=== PATIENT | female | born 2005 | race African-American/Black ===

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

== ENCOUNTER 2023-01-17 11:47 | Day surgery (SDC) | payer OTHER ==
[2023-01-17] MEDS ORDERED: hydrALAZINE 20 MG/ML VIAL SLOW IVP PRN (12:59)
[2023-01-17 13:38] LABS: Fetal Membranes Rupture No Membranes Rupture (No Rupture)
[2023-01-17 14:23] LABS: Bilirubin Neg (Negative); Blood, Urine 50 (Negative); Clarity Clear (Clear); Glucose, Urine (Dipstick) Normal (Negative); Ketone, Urine Negative (Negative); Leukocyte 500 (Negative); Nitrite Negative (Negative); Protein, Urine (Dipstick) 15 mg/dl (Neg-Trace); Urobilinogen Normal mg/dL (Less than 2)
[2023-01-17 14:31] LABS: Bacteria/HPF Rare-Few HPF (None Seen); CAUTI Indications for Culture Pregnancy; Squamous Epithelial 0-3 HPF (0-3); Yeast-Budding Rare HPF (None Seen)
[2023-01-17 14:32] LABS: Urine Culture Reflex Yes Yes
== END 2023-01-17 17:24 | disposition home health service (06) ==
LOC: CSHLD/OP 11:47
PROVIDERS: ATTEND Family Medicine
DX: O47.03 False labor before 37 completed weeks of gestation, third trimester (principal); O98.813 Other maternal infectious and parasitic diseases complicating pregnancy, third trimester; B37.31 Acute candidiasis of vulva and vagina; Z3A.36 36 weeks gestation of pregnancy
CPT/HCPCS: 81001; 84112; 87086; 87480; 87510; 87660

== ENCOUNTER 2023-01-20 21:11 | Day surgery (SDC) | payer OTHER ==
[2023-01-20 21:59] VITALS: BMI 25.2
[2023-01-21] MEDS ORDERED: hydrALAZINE 20 MG/ML VIAL SLOW IVP PRN (00:26)
== END 2023-01-21 00:01 | disposition home or self-care (01) ==
LOC: CSHLD/OP 21:11
PROVIDERS: ATTEND Obstetrics & Gynecology
DX: O47.1 False labor at or after 37 completed weeks of gestation (principal); O23.43 Unspecified infection of urinary tract in pregnancy, third trimester; N39.0 Urinary tract infection, site not specified; O23.593 Infection of other part of genital tract in pregnancy, third trimester; B96.89 Other specified bacterial agents as the cause of diseases classified elsewhere; Z3A.37 37 weeks gestation of pregnancy
CPT/HCPCS: 99283

== ENCOUNTER 2023-01-30 12:22 | Inpatient (IN) | payer OTHER ==
[2023-01-30] MEDS ORDERED: hydrALAZINE 20 MG/ML VIAL SLOW IVP PRN (12:31)
[2023-01-30] MEDS ORDERED: Methylergonovine 0.2 MG/ML VIAL IM PRN (12:31)
[2023-01-30] MEDS ORDERED: Tranexamic Acid 1,000 MG/10 ML VIAL IVP PRN (12:31)
[2023-01-30] MEDS ORDERED: Ondansetron PF 4 MG/2 ML Vial IVP PRN (12:31)
[2023-01-30] MEDS ORDERED: Promethazine HCl 25 MG/ML VIAL IM PRN (12:31)
[2023-01-30] MEDS ORDERED: Carboprost 250 MCG/ML AMP IM PRN (12:31)
[2023-01-30] MEDS ORDERED: Diphenoxylate HCl/Atropine Tablet PO PRN (12:31)
[2023-01-30] MEDS ORDERED: Acetaminophen 500 MG TAB PO PRN (12:31)
[2023-01-30] MEDS ORDERED: Misoprostol 200 MCG TAB PR PRN (12:31)
[2023-01-30 12:50] VITALS: BMI 25.4
[2023-01-30] MEDS ORDERED: Acetaminophen 325 MG TAB PO SCH (13:15)
[2023-01-30 13:41] LABS: #Eosinphils 0.1 10x3/uL (0.0-0.5); #Monocytes 1.1 10x3/uL (0.0-1.1); %Basophils 0.4 % (0.0-2.0); %Eosinophils 0.7 % (0.0-6.0); %Monocytes 10.5 % (0.0-10.0); %Neutrophils 73.7 % (40.0-75.0); Hemoglobin 10.3 g/dL (12.0-15.5); Mean Corpuscular HGB CONC 31.2 g/dL (32.0-36.0); Mean Corpuscular Volume 70.4 fl (81.6-98.3); Mean Platelet Volume 11.8 fl (7.4-10.4); Platelet Count 207 10x3/uL (150-450); RBC Distribution Width 15.7 % (11.5-14.5); Red Blood Cell (RBC) Count 4.69 10x6/uL (3.90-5.03); White Blood Cell (WBC) Count 10.9 10x3/uL (3.5-10.5)
[2023-01-30 13:57] LABS: ALT (SGPT) 14 U/L (8-55); AST (SGOT) 15 U/L (5-30); Albumin 3.2 g/dL (3.5-5.0); Alkaline Phosphatase 153 U/L (40-100); Anion Gap 11 mmol/L (10-20); BUN (Urea Nitrogen) Less than 4 mg/dL (8.4-21.0); Bilirubin, Total 0.3 mg/dL (0.2-1.2); Calc. Creatinine Clearance 138 mL/min (70-130); Calcium 8.4 mg/dL (7.8-10.44); Carbon Dioxide 24 mmol/L (22-29); Chloride 107 mmol/L (98-107); Estimated GFR 123; Globulin 3.2 g/dL (2.4-3.5); Glucose 80 mg/dL (70-105); Potassium 3.1 mmol/L (3.5-5.1); Protein, Total 6.4 g/dL (6.0-8.3); Sodium 139 mmol/L (136-145)
[2023-01-30] MEDS ORDERED: Lactated Ringer's 1,000 ML IV SCH (14:30)
[2023-01-30 14:31] LABS: Creatinine, Urine 53.64 mg/dL (47-110)
[2023-01-30] MEDS ORDERED: Metoclopramide HCl 10 MG/2 ML VIAL IVP SCH (15:00)
[2023-01-30] MEDS ORDERED: diphenhydrAMINE 25 MG CAP PO SCH (15:00)
[2023-01-30] MEDS ORDERED: Ibuprofen 800 MG TAB PO PRN (15:48)
[2023-01-30] MEDS ORDERED: Lidocaine 1% (PF) 30 ML VIAL SC PRN (15:48)
[2023-01-30] MEDS ORDERED: Misoprostol 100 MCG TAB VAG SCH (16:00)
[2023-01-30 16:32] LABS: HBSAg Index 0.16 S/CO (0-0.99); Hep B Surf Ag - L&D Non-Reactive S/CO (NonReactive); Syphilis Antibody Nonreactive (Nonreactive); Syphilis Antibody Index 0.06 S/CO (<1.00 Non-Reactive); Thyroid Stimulating Hormone 1.9251 uIU/mL (0.35-4.94)
[2023-01-30] MEDS ORDERED: diphenhydrAMINE 50 MG/ML VIAL ONE (16:39)
[2023-01-30] MEDS ORDERED: diphenhydrAMINE 50 MG/ML VIAL IVP SCH (16:45)
[2023-01-30 20:17] LABS: Hemoglobin A1c 5.1 % (4.0-6.0)
[2023-01-30 20:28] LABS: Uric Acid 3.5 mg/dL (2.6-6.0)
[2023-01-30] MEDS: NS w/ Oxytocin 30 units 500 ML IV SCH (21:48)
[2023-01-31] MEDS ORDERED: Dextrose 5%-Lactated Ringers 1,000 ML IV SCH (07:45)
[2023-01-31] MEDS ORDERED: fentaNYL 50 mcg/mL 1 mL Vial SLOW IVP PRN (08:40)
[2023-01-31] MEDS ORDERED: fentaNYL/Ropivacaine Epidural 100 ML ONE (11:20)
[2023-01-31] MEDS ORDERED: Promethazine HCl 25 MG/ML VIAL IM PRN (12:00)
[2023-01-31] MEDS ORDERED: fentaNYL 2 mcg/Ropivacaine 0.2% Epidural 100 ML CADD EPIDURAL SCH (12:00)
[2023-01-31] MEDS ORDERED: Naloxone HCl 0.4 mg/ml Vial IVP PRN ×2 (12:00)
[2023-01-31] MEDS ORDERED: Acetaminophen 325 MG TAB PO PRN ×2 (12:00→17:44)
[2023-01-31] MEDS ORDERED: Lactated Ringer's 500 ML IV PRN (12:00)
[2023-01-31] MEDS ORDERED: Communication Order-Pharmacy FS SCH (12:00)
[2023-01-31] MEDS ORDERED: diphenhydrAMINE 50 MG/ML VIAL IVP PRN (12:00)
[2023-01-31] MEDS ORDERED: ePHEDrine Sulfate 50 MG/10 ML VIAL SLOW IVP PRN (12:00)
[2023-01-31] MEDS ORDERED: Ondansetron PF 4 MG/2 ML Vial IVP PRN (12:00)
[2023-01-31] MEDS ORDERED: Moisturizing Cream (Eucerin) 113 GM JAR TOP PRN (12:00)
[2023-01-31] MEDS ORDERED: Milk Of Magnesia 30 ML UDCUP PO PRN (14:03)
[2023-01-31] MEDS ORDERED: Bisacodyl 10 MG SUPP PR PRN (14:03)
[2023-01-31] MEDS ORDERED: Boostrix 0.5 ML (Tdap) VIAL (>/=7 yrs of age) IM ONE (14:03)
[2023-01-31] MEDS ORDERED: hydrALAZINE 20 MG/ML VIAL SLOW IVP PRN (14:03)
[2023-01-31] MEDS: NS w/ Oxytocin 30 units 500 ML IV SCH (14:18)
[2023-01-31] MEDS: Ferrous Sulfate 325 MG TAB PO SCH (17:44)
[2023-01-31] MEDS: Ibuprofen 800 MG TAB PO SCH (17:58)
[2023-01-31] MEDS: Docusate 100 MG CAP PO SCH (21:02)
[2023-01-31] MEDS ORDERED: Ibuprofen 800 MG TAB PO SCH (22:00)
[2023-02-01] MEDS: Ibuprofen 800 MG TAB PO SCH ×3 (02:10→18:37)
[2023-02-01] MEDS: Docusate 100 MG CAP PO SCH ×2 (08:25→21:29)
[2023-02-01] MEDS: Prenatal Vitamin 1 TAB PO SCH (08:25)
[2023-02-01] MEDS: Ferrous Sulfate 325 MG TAB PO SCH ×2 (08:27→18:33)
[2023-02-02] MEDS: Ibuprofen 800 MG TAB PO SCH (05:07)
[2023-02-02] MEDS: Ferrous Sulfate 325 MG TAB PO SCH (07:58)
[2023-02-02] MEDS: Docusate 100 MG CAP PO SCH (08:35)
[2023-02-02] MEDS: Prenatal Vitamin 1 TAB PO SCH (08:35)
[2023-02-02 11:17] VITALS: BP 127/83; TEMP 97.9
== END 2023-02-02 13:00 | disposition home or self-care (01) | DRG 807 ==
LOC: CSHLD/OP 12:22 → CSHLD 14:59 → CSHPP 01-31 16:29
PROVIDERS: ADMIT Student in an Organized Health Care Education/Training Program; ATTEND Student in an Organized Health Care Education/Training Program
PROC: 10E0XZZ Delivery of Products of Conception, External Approach (ICD-10-PCS; principal; 2023-01-31)
PROC: 10907ZC Drainage of Amniotic Fluid, Therapeutic from Products of Conception, Via Natural or Artificial Opening (ICD-10-PCS; 2023-01-31)
PROC: 10H07YZ Insertion of Other Device into Products of Conception, Via Natural or Artificial Opening (ICD-10-PCS; 2023-01-31)
PROC: 3E0P7VZ Introduction of Hormone into Female Reproductive, Via Natural or Artificial Opening (ICD-10-PCS; 2023-01-31)
DX: O13.4 Gestational [pregnancy-induced] hypertension without significant proteinuria, complicating childbirth (principal); Z37.0 Single live birth; Z3A.38 38 weeks gestation of pregnancy; Z87.440 Personal history of urinary (tract) infections; E87.6 Hypokalemia; O99.284 Endocrine, nutritional and metabolic diseases complicating childbirth; O71.89 Other specified obstetric trauma
CPT/HCPCS: 80053; 82570; 83036; 84156; 84443; 84550; 86780; 86850; 86900; 86901; 87340; 99285; J1200; J2590; J2765; J3010

== ENCOUNTER 2023-10-10 18:16 | Emergency (ER) | payer OTHER | END 2023-10-10 19:45 | disposition home or self-care (01) | LOC: CSHERS 18:16 | DX: M25.571 Pain in right ankle and joints of right foot (principal); Z55.6 Problems related to health literacy ==